=== PATIENT | female | born 1945 | race African-American/Black ===

== ENCOUNTER 2017-11-02 15:04 | Emergency (ER) | payer MEDICARE, MEDICAID ==
[~2017-11-02] VITALS: Ht 162.6 cm; Wt 52.2 kg
--- NOTE | 2017-11-02 15:38 | NUR ---
PT PRESENTED TO THE ER WITH A C/O SI WITHOUT A PLAN. PT IS AA&O X4. PT AMBULATED TO THE BATHROOM AND URINE SAMPLE WAS OBTAINED. PT AMBULATED BACK TO BED #15 AND FIRE PATROL IS AT THE BEDSIDE FOR BLOOD DRAW. SAMPLES OBTAINED.
[2017-11-02 15:42] LABS: APPEARANCE,URINE Slightly Cloudy (CLEAR); BILIRUBIN,URINE SMALL (NEGATIVE); BLOOD, URINE Negative Ery/uL (NEGATIVE); COLOR,URINE Yellow (YELLOW); KETONES,URINE Trace (NEGATIVE); LEUKOCYTE ESTERASE ,URINE Negative (NEGATIVE); NITRITE, URINE Negative (NEGATIVE); PH,URINE 5.5 (5.0-8.0); PROTEIN,URINE 30 mg/dl (NEGATIVE); UGLUCOSE Negative (NEGATIVE)
[2017-11-02 15:43] LABS: BASOPHILS % (AUTO) 0.6 % (0.0-2.0); HEMATOCRIT 37 % (33-45); HEMOGLOBIN 12.6 g/dL (11.5-14.8); LYMPHOCYTES # (AUTO) 1.5 /CMM (0.8-4.8); MEAN CORPUSCULAR HGB CONC 34 g/dl (31.0-36.0); MEAN CORPUSCULAR VOLUME 85 fL (82-100); MONOCYTES # (AUTO) 0.3 /CMM (0.1-1.30); MONOCYTES % (AUTO) 4.7 % (2.0-12.0); NEUTROPHILS # (AUTO) 3.7 /CMM (1.8-8.9); NEUTROPHILS % (AUTO) 66.7 % (43.0-81.0); PLATELET COUNT (AUTO) 207 /CMM (150-450); RDW COEFFICIENT OF VARIATION 14.6 (11.5-15.0); RED BLOOD CELL COUNT(AUTO) 4.32 MIL/uL (4.0-5.2); WHITE BLOOD COUNT (AUTO) 5.6 K/uL (4.3-11.0)
[2017-11-02 15:54] LABS: WBC,URINE 0-2 /HPF (0-3)
[2017-11-02 15:55] LABS: RBC,URINE 0-2 /HPF (0-2); SQUAMOUS EPITHELIAL CELL,UR Moderate /HPF (None Seen)
[2017-11-02 15:56] LABS: BACTERIA,URINE Moderate /HPF (None Seen)
[2017-11-02 15:57] LABS: CALCIUM, SERUM 9.3 mg/dL (8.5-10.1); CARBON DIOXIDE 30 mmol/L (21-32); CHLORIDE 108 mmol/L (98-107); CREATININE 0.9 mg/dL (0.6-1.3); GLUCOSE 189 mg/dL (74-106); POTASSIUM 4.1 mmol/L (3.5-5.1); SODIUM SERUM 144 mmol/L (136-145); UREA NITROGEN, BLOOD 16 mg/dL (7-18)
[2017-11-02 16:02] LABS: ALANINE AMINOTRANSFERASE 32 U/L (12-78); ALBUMIN 3.6 g/dL (3.4-5.0); ALCOHOL, BLOOD < 3 mg/dL (0-0); ALKALINE PHOSPHATASE 65 U/L (46-116); ASPARTATE AMINOTRANSFERASE 22 U/L (15-37); BILIRUBIN,DIRECT 0.2 mg/dL (0.0-0.2); BILIRUBIN,TOTAL 0.5 mg/dL (0.2-1.0); SALICYLATE 3.9 mg/dL (2.8-20.0); TOTAL PROTEIN, SERUM 6.9 g/dL (6.4-8.2)
[2017-11-02 16:03] LABS: ACETAMINOPHEN 0 ug/ml (10-30)
--- NOTE | 2017-11-02 16:04 | NUR ---
PT LEFT FOR CT.
--- NOTE | 2017-11-02 16:20 | NUR ---
PT RETURNED FROM CT. NIHSS SCALE DONE. PT IS ON THE MONITOR AND CONTINUOUS PULSE OX. 20G IV STARTED IN RFA.
--- NOTE | 2017-11-02 16:28 | NUR ---
PER DR. VALENCIA, PT HAS A BLEED.
--- NOTE | 2017-11-02 16:29 | NUR ---
PT IN PROCESS OF BEING MOVED TO BED #17 NEXT TO NURSE'S STATION.
[2017-11-02 17:10] LABS: INR 0.95 (0.85-1.15)
[2017-11-02 17:17] VITALS: BP 138/66
--- NOTE | 2017-11-02 17:20 | NUR ---
PT AMBULATED TO THE BATHROOM WITHOUT ASSISTANCE. NO ATAXIA NOTED. STEADY GAIT.
--- NOTE | 2017-11-02 17:25 | NUR ---
PT RETURNED FROM THE BATHROOM AND WAS RECONNECTED TO THE MONITOR AND CONTINUOUS PULSE OX.
--- NOTE | 2017-11-02 17:47 | NUR ---
[facility]: [place] ROOM 4407-1 REPORT TO [phone] EXT. [phone] [facility] ETA 40 MIN
--- NOTE | 2017-11-02 18:04 | NUR ---
PT WOULD LIKE THE FOLLOWING PEOPLE TO BE NOTIFIED/ KEPT UP TO DATE ON HER STATUS. BARBARA DONOVAN WENDY DONOVAN [employer]
--- NOTE | 2017-11-02 18:15 | NUR ---
REPORT GIVEN TO CHRISTOS BEARDEN/CHG AT [facility].
--- NOTE | 2017-11-02 18:22 | NUR ---
REPORT GIVEN TO [facility] EMT. Patient Tranfers to outside Facility Physician:DR. FAY Location: [facility]
--- NOTE | 2017-11-02 18:29 | NUR ---
PT TRANSFERRED OUT VIA AMBULANCE.
== END 2017-11-02 18:31 ==
LOC: ER 15:05
DX: I62.9 Nontraumatic intracranial hemorrhage, unspecified (principal); R45.851 Suicidal ideations; F32.9 Major depressive disorder, single episode, unspecified; F17.210 Nicotine dependence, cigarettes, uncomplicated; Z91.5 Personal history of self-harm; Z59.0 Homelessness
CPT/HCPCS: 36415; 70450; 80048; 80076; 80305; 80329; 81001; 85025; 85730; 99291; A4606; G0480 ×2; 81000-TC; 87086-TC; Z7610